=== PATIENT | male | born 1950 | race Caucasian/White ===

== ENCOUNTER 2017-08-09 04:28 | Emergency (ER) | payer MEDICARE, OTHER ==
[2017-08-09] MEDS: IV NORMAL SALINE 1000ML BAG 1,000 ML IV (05:46)
[2017-08-09] MEDS: KETOROLAC 30 MG/ML INJ. IV (05:46)
[2017-08-09] MEDS: ONDANSETRON PF 4 MG/2 ML VIAL. IV (05:46)
[2017-08-09 05:50] LABS: ADD MAN DIFF? NO
[2017-08-09 05:52] LABS: BASO # 0.1 x10^3/uL (0.0-0.2); BASO % 1 % (0-3); EOS # 0.1 x10^3/uL (0.0-0.7); EOS % 1 % (0-3); HEMATOCRIT 43.6 % (39.0-53.0); HEMOGLOBIN 15.3 g/dL (13.0-17.5); LYMPH # 1.3 x10^3/uL (1.0-4.8); LYMPH % 12 % (24-48); MEAN CORPUSCULAR HEMOGLOBIN 29 pg (25-35); MEAN CORPUSCULAR HGB CONC 35 g/dL (31-37); MEAN CORPUSCULAR VOLUME 83 fL (79-100); MONO # 0.7 x10^3/uL (0.0-1.1); MONO % 7 % (0-9); NEUT # 7.9 x10^3uL (1.8-7.7); NEUT % 79 % (31-73); PLATELET COUNT 219 x10^3/uL (140-400); RED BLOOD COUNT 5.26 x10^6/uL (4.30-5.70); RED CELL DISTRIBUTION WIDTH 13.7 % (11.5-14.5); WHITE BLOOD COUNT 10.1 x10^3/uL (4.0-11.0)
[2017-08-09 06:07] LABS: CALCIUM 9.2 mg/dL (8.5-10.1); GLUCOSE 191 mg/dL (70-99)
[2017-08-09 06:08] LABS: ANION GAP 12 (6-14); BLOOD UREA NITROGEN 17 mg/dL (8-26); BUN/CREATININE RATIO 15 (6-20); CARBON DIOXIDE 23 mmol/L (21-32); CHLORIDE 104 mmol/L (98-107); CREATININE 1.1 mg/dL (0.7-1.3); GFR 67.2; POTASSIUM 3.5 mmol/L (3.5-5.1); SODIUM 139 mmol/L (136-145)
[2017-08-09 06:13] LABS: ALBUMIN 4.2 g/dL (3.4-5.0); ALBUMIN/GLOBULIN RATIO 1.1 (1.0-1.7); ALK PHOS 109 U/L (46-116); ALT (SGPT) 19 U/L (16-63); AST (SGOT) 15 U/L (15-37); LIPASE 135 U/L (73-393)
[2017-08-09 06:33] LABS: CLARITY,URINE TURBID; COLOR,URINE RED; GLUCOSE,URINE NEGATIVE (NEG); PROTEIN,URINE 100 mg/dL (NEG-TRACE)
[2017-08-09 06:37] LABS: RBC,URINE TNTC /HPF (0-2)
[2017-08-09 06:38] LABS: HYALINE CASTS, URINE FEW /HPF
[2017-08-09 06:39] LABS: BACTERIA,URINE FEW /HPF (0-FEW); SQUAMOUS EPITHELIAL CELL,UR OCC /LPF
== END 2017-08-09 07:14 | disposition home or self-care (01) ==
LOC: ER 04:28
DX: N23 Unspecified renal colic (principal); E11.9 Type 2 diabetes mellitus without complications; E78.00 Pure hypercholesterolemia, unspecified; Z87.442 Personal history of urinary calculi
CPT/HCPCS: 36415; 74176; 80053; 81001; 83690; 85025; 96361; 96374; 96375; 99285-25; J1885; J2405; J7030; P9612